=== PATIENT | male | born 1980 | race Caucasian/White ===

== ENCOUNTER → 2020-02-03 | Outpatient (CLI) | payer OTHER | LOC: MHCPAIN 13:31 | DX: M47.817 Spondylosis without myelopathy or radiculopathy, lumbosacral region (principal); M54.5 Low back pain; M53.3 Sacrococcygeal disorders, not elsewhere classified; M79.18 Myalgia, other site | CPT/HCPCS: G0463 ==

== ENCOUNTER → 2020-02-04 | Outpatient (CLI) | payer OTHER | LOC: MHCPAIN 08:37 | DX: M79.18 Myalgia, other site (principal); M54.2 Cervicalgia; M54.6 Pain in thoracic spine; M54.5 Low back pain | CPT/HCPCS: J1040 ==

== ENCOUNTER → 2020-05-20 | Outpatient (CLI) | payer OTHER | LOC: COL.RAD 12:31 | DX: E23.7 Disorder of pituitary gland, unspecified (principal) | CPT/HCPCS: A9585 ==